=== PATIENT | male | born 1985 | race Hispanic/Latino ===

== ENCOUNTER 2021-08-27 21:53 | Emergency (ER) | payer SELFPAY ==
[~2021-08-27] VITALS: Ht 157.5 cm; Wt 56.7 kg
== END 2021-08-27 22:05 | disposition left against medical advice (07) ==
LOC: ER 22:00
DX: Z00.8 Encounter for other general examination (principal)

== ENCOUNTER 2023-01-09 15:46 | Emergency (ER) | payer SELFPAY ==
[~2023-01-09] VITALS: Ht 157.5 cm; Wt 56.7 kg
[2023-01-09] MEDS ORDERED: SODIUM CHLORIDE 0.9% 1000ML 1,000 ML IV STA (16:02)
[2023-01-09 16:14] LABS: BASOPHILS # (AUTO) 0.1 (0.0-0.1); BASOPHILS % 0.9 % (0.0-1.0); EOSINOPHILS # (AUTO) 0.4 (0.0-0.4); EOSINOPHILS % 4.5 % (0.0-6.0); HEMATOCRIT 43.2 % (38.2-49.6); HEMOGLOBIN 15.1 g/dL (14.0-18.0); LYMPHOCYTES # (AUTO) 1.8 (1.0-3.2); LYMPHOCYTES % 22.2 % (18.0-39.1); MEAN CORPUSCULAR HEMOGLOBIN 30.8 pg (28-32); MEAN CORPUSCULAR VOLUME 88.2 fL (81-99); MONOCYTES # (AUTO) 0.7 (0.2-0.8); MONOCYTES % 8.4 % (4.4-11.3); NEUTROPHILS # (AUTO) 5.1 (2.1-6.9); NEUTROPHILS % 63.6 % (38.7-80.0); PLATELET COUNT 335 x10e3/uL (140-360)
[2023-01-09] MEDS ORDERED: ONDANSETRON HCL INJ 2MG/ML 2ML 2 MG/ML VIAL IV STA (16:19)
[2023-01-09 16:21] LABS: INR 0.89; PROTHROMBIN TIME 12.5 seconds (11.9-14.5)
[2023-01-09 16:22] LABS: PARTIAL THROMBOPLASTIN TIME 27.3 seconds (23.8-35.5)
[2023-01-09 16:30] LABS: ALBUMIN 4.8 g/dL (3.5-5.0); ALBUMIN/GLOBULIN RATIO 1.5 (0.8-2.0); ANION GAP 15.8 mmol/L (8-16); CALCIUM 9.7 mg/dL (8.4-10.2); CREATININE, SERUM 0.92 mg/dL (0.72-1.25); POTASSIUM 3.8 mmol/L (3.5-5.1)
[2023-01-09] MEDS ORDERED: MAGNESIUM/ALUMINUM/SIMETHICONE 30 ML UDC PO ONE (16:45)
[2023-01-09] MEDS ORDERED: LIDOCAINE VISC 2% SOLN 15 ML UDC PO ONE (16:45)
[2023-01-09] MEDS ORDERED: PANTOPRAZOLE SO40 MG PO (18:13)
[2023-01-09] MEDS ORDERED: ONDANSETRON ODT4 MG PO (18:13)
== END 2023-01-09 18:39 | disposition home or self-care (01) ==
LOC: ER 15:52
DX: R11.0 Nausea (principal); T52.0X1A Toxic effect of petroleum products, accidental (unintentional), initial encounter; Y99.0 Civilian activity done for income or pay
CPT/HCPCS: 36415; 71045; 80053; 85025; 85610; 85730; 99284; C9113; J2405; J7030